=== PATIENT | female | born 1960 | race Caucasian/White ===

== ENCOUNTER 2020-07-04 16:26 | Emergency (ER) | payer BC, MEDICAID, MEDICARE ==
[~2020-07-04] VITALS: Ht 160 cm; Wt 109.0 kg
[~2020-07-04 16:26] MED LIST: ASPI-12 PO; CYCL-1 PO; DULO-31 PO; FENT1PAT10 TP; GABA-532 PO; HYDR-4353 PO; NABU-134 PO; TRAZ-251 PO
[2020-07-04 18:00] LABS: ALANINE AMINOTRANSFERASE 35 U/L (12-78); ALBUMIN/GLOBULIN RATIO 1.2 (1.1-1.5); ALKALINE PHOSPHATASE 115 IU/L (46-116); ANION GAP 7 (8-16); ASPARTATE AMINO TRANSFERASE 21 U/L (10-37); BASOPHILS # (AUTO) 0.1 X10'3 (0-0.2); BASOPHILS % (AUTO) 0.6 % (0-1); BILIRUBIN,TOTAL 0.3 MG/DL (0.1-1.0); BLOOD UREA NITROGEN 16 MG/DL (7-18); BUN/CREATININE RATIO 17.8 (6.6-38.0); CALCIUM 9.7 MG/DL (8.5-10.1); CHLORIDE 102 MMOL/L (99-107); EOSINOPHILS # (AUTO) 0.3 X10'3 (0-0.9); EOSINOPHILS % (AUTO) 2.3 % (0-6); GLUCOSE 91 MG/DL (70-104); HEMATOCRIT 42.9 % (35.0-45.0); HEMOGLOBIN 14.5 g/dl (12.0-16.0); LYMPHOCYTES # (AUTO) 3.3 X10'3 (1.1-4.8); LYMPHOCYTES % (AUTO) 28.8 % (21-51); MEAN CORPUSCULAR HGB CONC 33.9 g/dL (33.0-36.5); MEAN CORPUSCULAR VOLUME 91.6 FL (78-98); MEAN PLATELET VOLUME 9.5 FL (7.4-10.4); MONOCYTES # (AUTO) 0.7 X10'3 (0-0.9); MONOCYTES % (AUTO) 6.4 % (2-12); NEUTROPHILS # (AUTO) 7.1 X10'3 (1.8-7.7); NEUTROPHILS % (AUTO) 61.9 % (42-75); PLATELET COUNT 281 X10'3 (140-440); POTASSIUM 3.9 MMOL/L (3.5-5.1); RED BLOOD COUNT 4.68 X10'6 (4.20-5.60); SODIUM 140 MMOL/L (135-145); TOTAL CARBON DIOXIDE 31.2 MMOL/L (24-32); TOTAL PROTEIN 7.4 G/DL (6.4-8.2); WHITE BLOOD COUNT 11.4 X10'3 (4.5-11.0); eGFR 64 ML/MIN
[2020-07-04 20:52] LABS: D-DIMER 0.55 MG/L FEU (0-0.50)
[2020-07-04] MEDS ORDERED: iohexol 350MG/ML 100ml bottle IV ONE (21:17)
[2020-07-04 23:41] VITALS: BP 133/73
== END 2020-07-05 00:34 | disposition home or self-care (01) ==
LOC: ER 16:27
DX: R07.89 Other chest pain (principal); I10 Essential (primary) hypertension; G89.29 Other chronic pain; F41.9 Anxiety disorder, unspecified; F17.200 Nicotine dependence, unspecified, uncomplicated; Z79.82 Long term (current) use of aspirin; Z79.899 Other long term (current) drug therapy
CPT/HCPCS: 36415; 71045; 71275; 80053; 83880; 84484; 85025; 85379; 93005; 99285; Q9967

== ENCOUNTER 2024-03-17 10:29 | Emergency (ER) | payer OTHER, MEDICAID ==
[~2024-03-17] VITALS: Ht 160 cm; Wt 111.7 kg
[~2024-03-17 10:29] MED LIST changes: -NABU-134 PO; +NABU-139 PO
[2024-03-17 10:35] VITALS: TEMP 98.2
[2024-03-17 11:56] LABS: ALANINE AMINOTRANSFERASE 24 U/L (12-78); ALBUMIN 3.4 G/DL (3.4-5.0); ALBUMIN/GLOBULIN RATIO 0.9 (1.1-1.5); ALKALINE PHOSPHATASE 134 IU/L (46-116); ANION GAP 9 (8-16); ASPARTATE AMINO TRANSFERASE 12 U/L (10-37); BILIRUBIN,TOTAL 0.5 MG/DL (0.1-1.0); BLOOD UREA NITROGEN 12 MG/DL (7-18); BUN/CREATININE RATIO 15.4 (10.0-20.0); CALCIUM 9.4 MG/DL (8.5-10.1); CHLORIDE 103 MMOL/L (99-107); CREATININE 0.78 MG/DL (0.40-0.90); GLUCOSE 91 MG/DL (70-104); LIPASE 31 U/L (16-77); SODIUM 138 MMOL/L (135-145); TOTAL CARBON DIOXIDE 25.6 MMOL/L (24-32); eCRCL 62 ML/MIN; eGFR 75 ML/MIN
[2024-03-17 11:57] LABS: BASOPHILS # (AUTO) 0.1 X10'3 (0-0.2); BASOPHILS % (AUTO) 1.3 % (0-1); EOSINOPHILS # (AUTO) 0.2 X10'3 (0-0.9); EOSINOPHILS % (AUTO) 2.5 % (0-6); HEMOGLOBIN 14.5 g/dl (12.0-16.0); LYMPHOCYTES # (AUTO) 2.3 X10'3 (1.1-4.8); LYMPHOCYTES % (AUTO) 29.7 % (21-51); MEAN CORPUSCULAR HEMOGLOBIN 29.4 PG (27.0-31.0); MEAN CORPUSCULAR HGB CONC 32.9 g/dL (33.0-36.5); MEAN CORPUSCULAR VOLUME 89.2 FL (78-98); MEAN PLATELET VOLUME 8.7 FL (7.4-10.4); MONOCYTES # (AUTO) 0.5 X10'3 (0-0.9); MONOCYTES % (AUTO) 6.3 % (2-12); NEUTROPHILS # (AUTO) 4.7 X10'3 (1.8-7.7); NEUTROPHILS % (AUTO) 60.2 % (42-75); PLATELET COUNT 313 X10'3 (140-440); RED BLOOD COUNT 4.93 X10'6 (4.20-5.60); RED CELL DISTRIBUTION WIDTH 14.4 % (11.5-14.5); WHITE BLOOD COUNT 7.9 X10'3 (4.5-11.0)
[2024-03-17 12:37] VITALS: BP 134/92; PULSE 87; RESP 16; O2SAT 97
== END 2024-03-17 12:38 | disposition home or self-care (01) ==
LOC: ER 10:29
DX: R10.30 Lower abdominal pain, unspecified (principal); I10 Essential (primary) hypertension; G89.29 Other chronic pain; F41.9 Anxiety disorder, unspecified; Z79.82 Long term (current) use of aspirin; Z79.899 Other long term (current) drug therapy
CPT/HCPCS: 36415; 74176; 80053; 83690; 85025; 99284

== ENCOUNTER 2025-02-17 10:46 | Outpatient (CLI) | payer MEDICARE, MEDICAID ==
--- NOTE | 2025-02-17 19:48 | RADIOLOGY REPORT ---
CT Chest without intravenous contrast INDICATION: ENCOUNTER FOR SCREENING FOR MALIGNANT NEOPLASM OF LUNG TECHNIQUE: Multidetector spiral CT of the chest was performed from the lung apices to the upper abdom en utilizing axial images. Coronal and sagittal multiplanar reformats were performed. Radiation Dose : 1. Chest: CTDI volume is 3.7 mGy. Dose-length product is 134.3 mGy*cm The dose indicators for CT are the volume Computed Tomography (CT) Dose Index (CTDIvol) and the Dose Length Product (DLP), and are measured in units of mGy and mGy-cm, respectively. These indicators are not patient dose, but values generated from the CT scanner acquisition factors. The report includes radiation exposure data for exposures received during this examination. Comparison: CT angiography of the chest dated 07/04/2020 Findings: Lower neck: Unremarkable thyroid Lungs: No suspicious pulmonary nodules. No focal airspace disease. Central airways: Patent. Pleura: No pleural effusions. No pneumothorax Heart/Vascular Structures: The heart is normal in size. No pericardial effusion. There are coronar y artery calcifications. Normal caliber thoracic aorta. The main pulmonary artery is normal in abdirashid mary. Lymph Nodes: No adenopathy Musculoskeletal: Multilevel thoracic spondylosis. No fracture or suspicious bone lesions. Body wall: Unremarkable Upper abdomen: Unremarkable. IMPRESSION: 1. No suspicious pulmonary nodule. 2. Coronary artery disease. Lung-RADS: Category 1: Recommendation: Continue annual screening with LDCT [email or web address]
== END 2025-02-17 23:59 | disposition home or self-care (01) ==
LOC: RAD 10:46
PROVIDERS: ATTEND Nurse Practitioner
DX: Z12.2 Encounter for screening for malignant neoplasm of respiratory organs (principal); I25.10 Atherosclerotic heart disease of native coronary artery without angina pectoris; M47.814 Spondylosis without myelopathy or radiculopathy, thoracic region; F17.210 Nicotine dependence, cigarettes, uncomplicated
CPT/HCPCS: 71271